=== PATIENT | female | born 1965 | race Caucasian/White ===

== ENCOUNTER 2022-05-15 08:29 | Day surgery (SDC) | payer OTHER ==
[~2022-05-15] VITALS: Ht 162.6 cm; Wt 61.6 kg
[~2022-05-15 08:29] MED LIST: Estradiol1 MG PO; IBUP800 PO; Roxicet 5-3251 EACH PO
[2022-05-15] MEDS ORDERED: TESTOST SL (09:50)
[2022-05-15] MEDS ORDERED: ERGO400 (09:50)
[2022-05-15] MEDS ORDERED: PROGEST SL (09:50)
[2022-05-15] MEDS ORDERED: ESTR SL (09:50)
--- NOTE | 2022-05-15 10:13 | NUR ---
05/15/22 Lala3 Berkley Blum TWO ATTEMPTS AT IV. FIRST ATTEMPT BY MA IN R HAND INFILTRATED. SECOND ATTEMPT IN R AC SUCESSFUL.
== END 2022-05-15 12:44 | disposition home or self-care (01) ==
LOC: ORSCSDS 08:29
PROVIDERS: Internal Medicine Gastroenterology
PROC: 0DBL8ZX Excision of Transverse Colon, Via Natural or Artificial Opening Endoscopic, Diagnostic (ICD-10-PCS; principal; 2022-05-15 10:30)
PROC: 0DBP8ZX Excision of Rectum, Via Natural or Artificial Opening Endoscopic, Diagnostic (ICD-10-PCS; principal; 2022-05-15 10:30)
DX: R19.5 Other fecal abnormalities (principal); K64.8 Other hemorrhoids; D12.3 Benign neoplasm of transverse colon; K62.1 Rectal polyp
CPT/HCPCS: 88305; J2704; J7120